=== PATIENT | female | born 1980 | race American Indian/Alaskan Native ===

== ENCOUNTER 2019-01-23 17:16 | Emergency (ER) | payer SELFPAY ==
[2019-01-23] MEDS ORDERED: NACL 0.9% 1000 ML 1,000 ML IV ONE (17:31)
[2019-01-23 17:36] VITALS: BP 144/87
--- NOTE | 2019-01-23 17:58 | Emergency Department Report ---
ED Syncope HPI - General Chief Complaint: Syncope Stated Complaint: SYNCOPY Time Seen by Provider: 01/23/19 17:28 - History of Present Illness Initial Comments: Ms. Carter is a 38-year-old female with history of anxiety and depression who presents with syncopal episode witnessed by her daughter. She was standing next to a grocery cart when her daughter witnessed her going to the ground. Brief loss of consciousness. Son is also at the bedside. Son stated that she's been under a severe amount of stress. Her other son was recently incarcerated. He will be incarcerated for the next 15 years. Mrs. Carter states she just wants to sleep. when asked about suicidal ideation, she will not answer the question. Son stated that Ms. Carter has hx of "nervous breakdown" whereas she intentionally overdosed on pills. Timing/Prior Episodes: single episode today Precipitating Factors: Positive: none Context: standing Loss of Consciousness: brief (seconds) Current Symptoms: back to normal - Related Data Allergies/Adverse Reactions: Allergies No Known Allergies Allergy (Verified 01/23/19 17:31) Home Medications: Ambulatory Orders No Known Home Medications [No Reported Home Medications] 01/23/19 ED Review of Systems ROS: Stated complaint: SYNCOPY Other details as noted in HPI Comment: All other systems reviewed and negative Constitutional: denies: fever Eyes: denies: eye discharge Respiratory: denies: cough Cardiovascular: denies: chest pain ED Past Medical Hx - Past Medical History Previous Medical History?: No - Surgical History Past Surgical History?: No - Social History Smoking Status: Never Smoker Substance Use Type: None - Medications Home Medications: Home Medications Medication Instructions Recorded Confirmed Last Taken Type No Known Home Medications [No 01/23/19 01/23/19 Unknown History Reported Home Medications] ED Physical Exam - General Limitations: No Limitations General appearance: alert, in no apparent distress, other (laying on a stretcher with her back turned away from her children) - Head Head exam: Present: atraumatic, normocephalic - Eye Eye exam: Present: normal appearance - ENT ENT exam: Present: mucous membranes moist - Neck Neck exam: Present: normal inspection, full ROM - Respiratory Respiratory exam: Present: normal lung sounds bilaterally. Absent: respiratory distress, wheezes, rales, rhonchi - Cardiovascular Cardiovascular Exam: Present: regular rate, normal rhythm. Absent: systolic murmur, diastolic murmur, rubs, gallop - GI/Abdominal GI/Abdominal exam: Present: soft, normal bowel sounds. Absent: distended, tenderness - Extremities Exam Extremities exam: Present: normal inspection - Back Exam Back exam: Present: normal inspection - Neurological Exam Neurological exam: Present: alert, oriented X3 - Psychiatric Psychiatric exam: Present: depressed, flat affect - Skin Skin exam: Present: warm, dry, intact, normal color. Absent: rash ED Course Vital Signs 01/23/19 17:32 Temperature 98 F Pulse Rate 113 H Respiratory 16 Rate Blood Pressure 144/87 O2 Sat by Pulse 100 Oximetry ED Medical Decision Making - Lab Data Result diagrams: 01/23/19 17:44 01/23/19 17:44 Laboratory Results - last 24 hr 01/23/19 01/23/19 17:33 17:44 WBC 3.5 L RBC 3.75 Hgb 11.4 Hct 33.8 MCV 90 MCH 30 MCHC 34 RDW 12.4 L Plt Count 189 Lymph % (Auto) 30.3 Benzie % (Auto) 13.8 H Eos % (Auto) 0.5 Baso % (Auto) 0.6 Lymph # 1.0 L Benzie # 0.5 Eos # 0.0 Baso # 0.0 Seg Neutrophils % 54.8 Seg Neutrophils # 1.9 POC Glucose 92 - EKG Data 01/23/19 17:58 EKG obtained 1740 Sinus tachycardia rate 120 bpm normal axis prolonged QT interval no significant ST elevation nonspecific T wave pattern - Medical Decision Making 1. vasovagal syncope without indication of arrhythmia given IVF. EKG notable for sinus tachycardia which has resolved after IVF. She has had poor appetite and insomnia 2. grief reaction, acute depression regarding her son's incarceration. She will not provide hx. She is withdrawn obviously depressed. consult obtained in ED for patient. She denies SI. Did receive outpatient treatment referrals. Dc'd home Critical care attestation.: If time is entered above; I have spent that time in minutes in the direct care of this critically ill patient, excluding procedure time. ED Disposition Clinical Impression: Acute depression, Grief, Stress, Syncope Disposition: DC-01 TO HOME OR SELFCARE Is pt being admited?: No Does the pt Need Aspirin: No Condition: Stable Instructions: Syncope (ED), Depression (ED) Referrals: [facility] [Outside] - 3-5 Days [facility] [Outside] - 3-5 Days
[2019-01-23 18:00] LABS: Basophils % (Auto) 0.6 % (0.0-1.8); Eosinophils % (Auto) 0.5 % (0.0-4.3); Hematocrit 33.8 % (30.3-42.9); Hemoglobin 11.4 gm/dl (10.1-14.3); Lymphocytes % (Auto) 30.3 % (13.4-35.0); Mean Corpuscular HGB Conc 34 % (30-34); Mean Corpuscular Volume 90 fl (79-97); Monocytes # (Auto) 0.5 K/mm3 (0.0-0.8); Monocytes % (Auto) 13.8 % (0.0-7.3); Platelet Count 189 K/mm3 (140-440); Red Blood Count 3.75 M/mm3 (3.65-5.03); Red Cell Distribution Width 12.4 % (13.2-15.2)
[2019-01-23 18:28] LABS: Alanine Aminotransferase 9 units/L (7-56); Albumin 4.1 g/dL (3.9-5); BUN/Creatinine Ratio 13; Blood Urea Nitrogen 12 mg/dL (7-17); Calcium 8.4 mg/dL (8.4-10.2); Hemolysis Index 3
[2019-01-23 19:16] LABS: Bilirubin,Urine NEG (Negative); Color,Urine Straw (Yellow)
[2019-01-23 19:17] LABS: Bacteria,Urine 1+ /HPF (Negative); Blood,Urine MOD (Negative); Mucus,Urine FEW /HPF; Protein,Urine <15 mg/dL mg/dL (Negative); Urobilinogen,Urine < 2.0 mg/dL (<2.0); WBC,Urine < 1.0 /HPF (0.0-6.0)
[2019-01-23 19:25] LABS: Amphetamine Screen,Urine PRESUMPTIVE NEGATIVE; Benzodiazepines Screen,Urine PRESUMPTIVE NEGATIVE; Cannabinoid Screen,Urine PRESUMPTIVE NEGATIVE; Cocaine Screen,Urine PRESUMPTIVE NEGATIVE; Methadone Screen,Urine PRESUMPTIVE NEGATIVE; Opiate Screen,Urine PRESUMPTIVE NEGATIVE
== END 2019-01-23 19:30 | disposition home or self-care (01) ==
LOC: ED 17:16
DX: R55 Syncope and collapse (principal); F32.9 Major depressive disorder, single episode, unspecified; F43.9 Reaction to severe stress, unspecified; F43.21 Adjustment disorder with depressed mood
CPT/HCPCS: 36415; 80053; 80307; 81001; 82962; 84703; 85025; 93005; 93010; 96360; 99285; G0480; 80320

== ENCOUNTER 2019-08-05 22:04 | Emergency (ER) | payer OTHER ==
--- NOTE | 2019-08-05 23:48 | XRay Report ---
CHEST 2 VIEWS INDICATION / CLINICAL INFORMATION: Right chest pain.. COMPARISON: None available. FINDINGS: SUPPORT DEVICES: None. HEART / MEDIASTINUM: No significant abnormality. LUNGS / PLEURA: No significant pulmonary or pleural abnormality. No pneumothorax. ADDITIONAL FINDINGS: No significant additional findings. IMPRESSION: 1. No acute findings. Signer Name: Heladio Bass MD Signed: 08/05/2019 11:44 PM Workstation Name: [id number]
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
[2019-08-06] MEDS ORDERED: fentaNYL 100 MCG/2 ML INJ IM ONE (00:58)
[2019-08-06] MEDS ORDERED: ONDANSETRON 4 MG/2 ML INJ IM ONE (00:58)
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
[2019-08-06 01:15] VITALS: BP 115/78
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
== END 2019-08-06 02:15 | disposition home or self-care (01) ==
LOC: ED 22:04
DX: S39.012A Strain of muscle, fascia and tendon of lower back, initial encounter (principal); S16.1XXA Strain of muscle, fascia and tendon at neck level, initial encounter; F10.10 Alcohol abuse, uncomplicated; Z98.51 Tubal ligation status; Z98.890 Other specified postprocedural states; Z79.899 Other long term (current) drug therapy; V49.49XA Driver injured in collision with other motor vehicles in traffic accident, initial encounter; Y93.89 Activity, other specified; Y92.410 Unspecified street and highway as the place of occurrence of the external cause; Y99.8 Other external cause status
CPT/HCPCS: 71046; 72040; 72100; 96372; 99283; J2405; J3010

== ENCOUNTER 2020-01-29 12:41 | Observation (INO) | payer OTHER ==
[2020-01-29] MEDS ORDERED: ASPIRIN 325 MG TAB PO ONE (13:04)
[2020-01-29] MEDS ORDERED: ONDANSETRON 4 MG/2 ML INJ IV ONE (13:37)
[2020-01-29] MEDS ORDERED: fentaNYL 100 MCG/2 ML INJ IV ONE (13:37)
[2020-01-29] MEDS ORDERED: NITROGLYCERIN 2% OINT 1 GM TP ONE (13:37)
--- NOTE | 2020-01-29 13:40 | XRay Report ---
CHEST 2 VIEWS INDICATION / CLINICAL INFORMATION: Chest Pain. COMPARISON: 08/05/2019 FINDINGS: SUPPORT DEVICES: None. HEART / MEDIASTINUM: No significant abnormality. LUNGS / PLEURA: No significant pulmonary or pleural abnormality. No pneumothorax. ADDITIONAL FINDINGS: No significant additional findings. IMPRESSION: 1. No acute findings. Signer Name: Yoel Vemra MD Signed: 01/29/2020 1:35 PM Workstation Name: [id number]
--- NOTE | 2020-01-29 13:49 | Emergency Department Report ---
HPI - General Chief Complaint: Chest Pain PUI?: No Time Seen by Provider: 01/29/20 13:31 - [facility] HPI: Room 7 The patient is a 39-year-old female present with a chief complaint of chest pain. Patient states her symptoms began 5 days ago with intermittent substernal chest pain described as sharp and cramping in nature. Patient states she became diaphoretic, nauseous and short of breath with her chest pain. Patient denies recent flights or long car trips. Patient gives her pain a score of 10/10. Patient states her last stress test occurred in 2012 but she's never had a cardiac catheterization ED Past Medical Hx - Past Medical History Previous Medical History?: Yes Hx GERD: Yes Hx Psychiatric Treatment: Yes (depression) - Surgical History Additional Surgical History: Tubal ligation, Right foot surgery - Family History Family history: no significant - Social History Smoking Status: Never Smoker Substance Use Type: None (Denies illicit drug use), Alcohol (Occasional) - Medications Home Medications: Home Medications Medication Instructions Recorded Confirmed Last Taken Type Cyclobenzaprine [Flexeril] 10 mg PO TID PRN #10 tablet 08/06/19 Unknown Rx HYDROcodone/APAP 5-325 [[place] 1 - 2 each PO Q6HR PRN #10 tablet 08/06/19 Unknown Rx 5/325] Ibuprofen [Motrin 800 MG tab] 800 mg PO Q8HR PRN #20 tablet 08/06/19 Unknown Rx ED Review of Systems ROS: Stated complaint: CHEST PAIN Other details as noted in HPI Constitutional: diaphoresis Eyes: denies: eye pain ENT: denies: throat pain Respiratory: shortness of breath Cardiovascular: chest pain Endocrine: no symptoms reported Gastrointestinal: nausea. denies: vomiting Neurological: denies: headache Physical Exam - Physical Exam Vital Signs: Vital Signs 01/29/20 12:42 Temperature 98 F Pulse Rate 73 Respiratory 16 Rate Blood Pressure 122/75 O2 Sat by Pulse 100 Oximetry Physical Exam: GENERAL: The patient is well-developed well-nourished female sitting on stretcher occasionally experiencing chest discomfort. [] HEENT: Normocephalic. Atraumatic. Extraocular motions are intact. Patient has moist mucous membranes. NECK: Supple. Trachea midline CHEST/LUNGS: Clear to auscultation. There is no respiratory distress noted. HEART/CARDIOVASCULAR: Regular. There is no tachycardia. There is no gallop rub or murmur. ABDOMEN: Abdomen is soft, nontender. Patient has normal bowel sounds. There is no abdominal distention. SKIN: There is no rash. There is no edema. There is no diaphoresis. NEURO: The patient is awake, alert, and oriented. The patient is cooperative. The patient has normal speech MUSCULOSKELETAL: There is no evidence of acute injury. ED Course Vital Signs 01/29/20 12:42 Temperature 98 F Pulse Rate 73 Respiratory 16 Rate Blood Pressure 122/75 O2 Sat by Pulse 100 Oximetry ED Medical Decision Making - Lab Data Result diagrams: 01/29/20 13:12 01/29/20 13:08 - EKG Data -: EKG Interpreted by Me EKG shows normal: sinus rhythm Rate: normal - EKG Data When compared to previous EKG there are: previous EKG unavailable Interpretation: nonspecific ST-T wave phi (T wave inversions inferiorly) - Radiology Data Radiology results: report reviewed (Chest x-ray), image reviewed (Chest x-ray) interpreted by me: Chest x-ray-no focal infiltrates, no pneumothorax [facility] [address] [place] [address] XRay Report Signed Patient: YESSY PALOMO MR#: [id number] 5 : 1980 Acct:[id number] Age/Sex: 39 / F ADM Date: 01/29/20 Loc: ED Attending Dr: Ordering Physician: SATISH ESTRADA MD Date of Service: 01/29/20 Procedure(s): XR chest routine 2V Accession Number(s): [id number] cc: SATISH ESTRADA MD Fluoro Time In Minutes: CHEST 2 VIEWS INDICATION / CLINICAL INFORMATION: Chest Pain. COMPARISON: 08/05/2019 FINDINGS: SUPPORT DEVICES: None. HEART / MEDIASTINUM: No significant abnormality. LUNGS / PLEURA: No significant pulmonary or pleural abnormality. No pneumothorax. ADDITIONAL FINDINGS: No significant additional findings. IMPRESSION: 1. No acute findings. Signer Name: Yoel Verma MD Signed: 01/29/2020 1:35 PM Workstation Name: [id number] Transcribed By: HERMINIO Dictated By: Yoel Verma MD Electronically Authenticated By: Yoel Verma MD Signed Date/Time: 01/29/201334 DD/ 1335 TD/TT: - Differential Diagnosis ACS, pericarditis, GERD Critical care attestation.: If time is entered above; I have spent that time in minutes in the direct care of this critically ill patient, excluding procedure time. ED Disposition Clinical Impression: Chest pain Disposition: OP ADMIT IP TO THIS HOSP Is pt being admited?: Yes Does the pt Need Aspirin: Yes Condition: Fair Instructions: Chest Pain (ED) Time of Disposition: 14:39 (Hospitalist paged (Dr. Ortiz))
[2020-01-29 14:02] LABS: Basophils % (Auto) 0.3 % (0.0-1.8); Eosinophils % (Auto) 0.7 % (0.0-4.3); Hemoglobin 12.1 gm/dl (10.1-14.3); Lymphocytes # (Auto) 1.3 K/mm3 (1.2-5.4); Lymphocytes % (Auto) 33.7 % (13.4-35.0); Mean Corpuscular HGB Conc 34 % (30-34); Mean Corpuscular Volume 89 fl (79-97); Monocytes # (Auto) 0.4 K/mm3 (0.0-0.8); Monocytes % (Auto) 11.1 % (0.0-7.3); Platelet Count 184 K/mm3 (140-440); Red Blood Count 4.05 M/mm3 (3.65-5.03); Red Cell Distribution Width 12.8 % (13.2-15.2)
[2020-01-29 14:19] LABS: BUN/Creatinine Ratio 19; Blood Urea Nitrogen 15 mg/dL (7-17); Calcium 9.5 mg/dL (8.4-10.2); Hemolysis Index 9
[2020-01-29] MEDS ORDERED: ONDANSETRON 4 MG/2 ML INJ IV PRN (14:41)
[2020-01-29] MEDS ORDERED: ACETAMINOPHEN 325 MG TAB PO PRN (14:41)
--- NOTE | 2020-01-29 14:41 | History and Physical Report ---
History of Present Illness Chief complaint: My chest hurts History of present illness: 39 YO Female with HTN, GERD, Depression presents to the ED for evaluation. Patient states that she has experienced pain in her chest over the past 5 days. Patient states that pain was initially intermittent but has become more frequent over the past 2 days. Patient states that her pain is 610/10, intermittent, substernal, sharp, crampy, nonradiating, worsened with exertion, relieved with rest, associated with diaphoresis, associated with nausea, associated with shortness of breath. Patient acknowledges decreased exercise tolerance. Patient transported to [facility] for further evaluation and care. Patient seen and evaluated in the emergency department. Lab and imaging studies reviewed. Patient acknowledges family history of coronary artery disease. Patient found to have symptoms consistent with angina at rest, as well as diastolic congestive heart failure. Patient admitted to telemetry due to increased risk for cardiac decompensation. Cardiology consulted in the emergency department. Patient denies fever, chills, productive cough, skin rash, unilateral leg swelling, calf pain, prolonged travel/immobility, individual/family history of DVT/PE/bleeding/blood clotting disorders, known ill contacts, or known exposure to COVID-19. No prior admission for review. No medication listed for reconciliation at the time of my admission. Past History Past Medical History: GERD, hypertension, other (See HPI) Past Surgical History: Other (Tubal ligation, right foot surgery) Social history: , lives with family. denies: smoking, alcohol abuse Family history: CAD, hypertension Medications and Allergies Allergies Allergy/AdvReac Type Severity Reaction Status Date / Time No Known Allergies Allergy Verified 01/23/19 17:31 Home Medications Medication Instructions Recorded Confirmed Last Taken Type Cyclobenzaprine [Flexeril] 10 mg PO TID PRN #10 tablet 08/06/19 Unknown Rx HYDROcodone/APAP 5-325 [[place] 1 - 2 each PO Q6HR PRN #10 tablet 08/06/19 Unknown Rx 5/325] Ibuprofen [Motrin 800 MG tab] 800 mg PO Q8HR PRN #20 tablet 08/06/19 Unknown Rx Review of Systems Constitutional: no weight loss, no weight gain, no fever, no chills Ears, nose, mouth and throat: no ear pain, no ear discharge, no tinnitis, no nose pain, no nasal congestion Breasts: no change in shape, no swelling, no mass Cardiovascular: chest pain, shortness of breath, decreased exercise tolerance, no rapid/irregular heart beat, no edema, no syncope Respiratory: no cough, no cough with sputum, no excessive sputum, no hemoptysis Gastrointestinal: nausea, no abdominal pain, no vomiting, no diarrhea, no constipation Genitourinary Female: no pelvic pain, no flank pain, no menorrhagia, no dysuria, no urinary frequency, no urgency Rectal: no pain, no incontinence, no bleeding Musculoskeletal: no neck stiffness, no shooting arm pain, no arm numbness/tingling Integumentary: no rash, no pruritis, no redness, no sores, no wounds Neurological: no head injury, no transient paralysis, no paralysis, no parathesias, no numbness, no tingling, no seizures Psychiatric: no anxiety, no memory loss, no change in sleep habits, no sleep disturbances, no hypersomnia, no change in appetite, no change in libido, no qureshi icidal ideation, no disorientation Endocrine: no cold intolerance, no heat intolerance, no polyphagia, no excessive thirst, no polydipsia, no nocturia, no excessive sweating, no flushing Hematologic/Lymphatic: no easy bruising, no easy bleeding, no lymphadenopathy, no lymphedema Allergic/Immunologic: no urticaria, no wheezing, no anaphylaxis, no angioedema Exam - Constitutional Vitals: Temp Pulse Resp BP Pulse Ox 98 F 68 16 122/79 100 01/29/20 12:42 01/29/20 13:57 01/29/20 12:42 01/29/20 13:57 01/29/20 12:42 General appearance: Present: mild distress - EENT Eyes: Present: PERRL ENT: hearing intact, clear oral mucosa - Neck Neck: Present: supple, normal ROM - Respiratory Respiratory effort: normal Respiratory: bilateral: CTA - Cardiovascular Heart Sounds: Present: S1 & S2. Absent: rub, click - Extremities Extremities: pulses symmetrical, No edema Peripheral Pulses: within normal limits - Abdominal General gastrointestinal: Present: soft, non-tender, non-distended, normal bowel sounds Female genitourinary: Present: normal - Integumentary Integumentary: Present: clear, warm, dry - Musculoskeletal Musculoskeletal: gait normal, strength equal bilaterally - Psychiatric Psychiatric: appropriate mood/affect, intact judgment & insight - Neurologic Neurologic: CNII-XII intact, moves all extremities HEART Score - HEART Score Troponin: Troponin T < 0.010 ng/mL (0.00-0.029) 01/29/20 13:08 Results - Labs CBC & Chem 7: 01/29/20 13:12 01/29/20 13:08 Labs: Abnormal lab results 01/29/20 01/29/20 Range/Units 13:08 13:12 WBC 4.0 L (4.5-11.0) K/mm3 RDW 12.8 L (13.2-15.2) % White % (Auto) 11.1 H (0.0-7.3) % Carbon Dioxide 21 L (22-30) mmol/L Glucose 103 H (65-100) mg/dL Assessment and Plan - Patient Problems (1) Diastolic CHF Current Visit: Yes Status: Suspected Qualifiers: Heart failure chronicity: acute Qualified Code(s): I50.31 - Acute diastolic (congestive) heart failure Plan to address problem: Admit to telemetry, cardiology consulted, echocardiogram ordered and is pending at the time of admission, BNP, d-dimer, strict I/O, monitor blood pressure every shift, daily weight, supplemental oxygen (2) Angina at rest Current Visit: Yes Status: Acute Plan to address problem: Admit to telemetry, serial cardiac enzymes, EKG, supplemental oxygen, morphine, nitro, aspirin, (3) Hypertension Current Visit: Yes Status: Acute Qualifiers: Hypertension type: essential hypertension Qualified Code(s): I10 - Essential (primary) hypertension Plan to address problem: Monitor blood pressure every shift, supportive care (4) DVT prophylaxis Current Visit: Yes Status: Acute Plan to address problem: SCD to bilateral lower extremities while in bed, patient is ambulatory.
[2020-01-29] MEDS ORDERED: ASPIRIN 81 MG TAB CHEW PO STA (14:45)
[2020-01-29] MEDS ORDERED: NITROGLYCERIN 0.4 MG TAB SUBL SL PRN (14:45)
[2020-01-29] MEDS ORDERED: IBUPROFEN 800 MG TAB PO PRN (14:46)
[2020-01-29] MEDS ORDERED: CYCLOBENZAPRINE 10 MG TAB PO PRN (14:46)
[2020-01-29 15:58] LABS: Chol/HDL Ratio 2.5 %
[2020-01-29] MEDS: HYDROcodone/ACETAMINOPHEN 5-325 MG TAB PO PRN ×2 (18:17→23:43)
--- NOTE | 2020-01-30 08:28 | Consultation ---
History of Present Illness Consult date: 01/30/20 History of present illness: Impression No evidence of acute coronary syndrome atypical chest pain > 5 days HTN Negative cardiac markers, normal NTproBNP. CXR normal ECG sinus rhythm ASMI, age undetermined, no acute changes Plan stress thallium in AM to stratify risk. Past History Past Medical History: GERD, hypertension, other (See HPI) Past Surgical History: Other (Tubal ligation, right foot surgery) Social history: , lives with family. denies: smoking, alcohol abuse Family history: CAD, hypertension Medications and Allergies Allergies Allergy/AdvReac Type Severity Reaction Status Date / Time No Known Allergies Allergy Verified 01/23/19 17:31 Home Medications Medication Instructions Recorded Confirmed Last Taken Type Sertraline [Zoloft] 50 mg PO QDAY 01/29/20 01/29/20 01/29/20 History raNITIdine HCl [Zantac] 300 mg PO PRN PRN 01/29/20 01/29/20 Unknown History Active Meds: Active Medications Acetaminophen (Tylenol) 650 mg PO Q4H PRN PRN Reason: Pain MILD(1-3)/Fever >100.5/PATTON Acetaminophen/Hydrocodone Bitart ([place] 5/325) 1 each PO Q6HR PRN PRN Reason: PAIN Last Admin: 01/29/20 23:43 Dose: 1 each Documented by: Cyclobenzaprine HCl (Flexeril) 10 mg PO TID PRN PRN Reason: Muscle Spasm Ibuprofen (Ibuprofen) 800 mg PO Q8HR PRN PRN Reason: Pain, Moderate (4-6) Nitroglycerin (Nitrostat) 0.4 mg SL Q5M PRN PRN Reason: Chest Pain Ondansetron HCl (Zofran) 4 mg IV Q8H PRN PRN Reason: Nausea And Vomiting Sodium Chloride (Sodium Chloride Flush Syringe 10 Ml) 10 ml IV BID JUAN C Last Admin: 01/29/20 21:55 Dose: 10 ml Documented by: Sodium Chloride (Sodium Chloride Flush Syringe 10 Ml) 10 ml IV PRN PRN PRN Reason: LINE FLUSH Review of Systems All systems: negative (stated in impression) Physical Examination Vital Signs Temp Pulse Resp BP Pulse Ox 98 F 73 16 122/75 100 01/29/20 12:42 01/29/20 12:42 01/29/20 12:42 01/29/20 12:42 01/29/20 12:42 General appearance: no acute distress HEENT: Positive: PERRL Neck: Positive: neck supple Cardiac: Positive: Reg Rate and Rhythm, S1/S2 Lungs: Positive: Normal Exam Neuro: Positive: Grossly Intact Abdomen: Positive: Unremarkable Extremities: Absent: edema Results 01/29/20 13:12 01/29/20 13:08 Lipids 01/29/20 Range/Units 15:13 Triglycerides 40 (2-149) mg/dL Cholesterol 180 (50-199) mg/dL HDL Cholesterol 72 H (40-59) mg/dL Cholesterol/HDL Ratio 2.50 % CBC 01/29/20 Range/Units 13:12 WBC 4.0 L (4.5-11.0) K/mm3 RBC 4.05 (3.65-5.03) M/mm3 Hgb 12.1 (10.1-14.3) gm/dl Hct 36.0 (30.3-42.9) % Plt Count 184 (140-440) K/mm3 Lymph # 1.3 (1.2-5.4) K/mm3 [place] # 0.4 (0.0-0.8) K/mm3 Eos # 0.0 (0.0-0.4) K/mm3 Baso # 0.0 (0.0-0.1) K/mm3 Comprehensive Metabolic Panel 01/29/20 Range/Units 13:08 Sodium 137 (137-145) mmol/L Potassium 5.0 (3.6-5.0) mmol/L Chloride 102.6 (98-107) mmol/L Carbon Dioxide 21 L (22-30) mmol/L BUN 15 (7-17) mg/dL Creatinine 0.8 (0.7-1.2) mg/dL Glucose 103 H (65-100) mg/dL Calcium 9.5 (8.4-10.2) mg/dL
--- NOTE | 2020-01-30 15:48 | Progress Note ---
Assessment and Plan - Patient Problems (1) Diastolic CHF Current Visit: Yes Status: Suspected Qualifiers: Heart failure chronicity: acute Qualified Code(s): I50.31 - Acute diastolic (congestive) heart failure Plan to address problem: Admit to telemetry, cardiology consulted, echocardiogram ordered and is pending interpretation at this time, strict I/O, monitor blood pressure every shift, da carla weight, supplemental oxygen (2) Angina at rest Current Visit: Yes Status: Acute Plan to address problem: Admit to telemetry, serial cardiac enzymes, EKG, supplemental oxygen, morphine, nitro, aspirin, (3) Hypertension Current Visit: Yes Status: Acute Qualifiers: Hypertension type: essential hypertension Qualified Code(s): I10 - Essential (primary) hypertension Plan to address problem: Monitor blood pressure every shift, supportive care (4) DVT prophylaxis Current Visit: Yes Status: Acute Plan to address problem: SCD to bilateral lower extremities while in bed, patient is ambulatory. History Interval history: 39 YO Female HD #2 with Diastolic CHF, Angina, HTN. Pt is pending stress test. Pt resting comfortably. Echocardiogram pending interpretation. Patient is pending stress test in a.m. for a stratification. Patient continues to report intermittent chest pain. Patient denies fever, chills, palpitations, productive cough, recent ill contacts. No pull reported nursing events overnight. Hospitalist Physical - Constitutional Vitals: Temp Pulse Resp BP Pulse Ox 97.9 F 63 18 120/78 99 01/30/20 11:52 01/30/20 11:52 01/30/20 11:52 01/30/20 11:52 01/30/20 11:52 General appearance: Present: no acute distress - EENT Eyes: Present: PERRL ENT: hearing intact - Neck Neck: Present: supple - Respiratory Respiratory: right: CTA - Cardiovascular Rhythm: regular Heart Sounds: Present: S1 & S2 Peripheral Pulses: within normal limits - Abdominal General gastrointestinal: soft, non-tender, non-distended - Integumentary Integumentary: Present: clear, warm, dry - Psychiatric Psychiatric: appropriate mood/affect, cooperative - Neurologic Neurologic: CNII-XII intact HEART Score - HEART Score Troponin: Troponin T < 0.010 ng/mL (0.00-0.029) 01/29/20 21:00 Results - Labs CBC & Chem 7: 01/29/20 13:12 01/29/20 13:08 Labs: Laboratory Last Values WBC 4.0 K/mm3 (4.5-11.0) L 01/29/20 13:12 RBC 4.05 M/mm3 (3.65-5.03) 01/29/20 13:12 Hgb 12.1 gm/dl (10.1-14.3) 01/29/20 13:12 Hct 36.0 % (30.3-42.9) 01/29/20 13:12 MCV 89 fl (79-97) 01/29/20 13:12 MCH 30 pg (28-32) 01/29/20 13:12 MCHC 34 % (30-34) 01/29/20 13:12 RDW 12.8 % (13.2-15.2) L 01/29/20 13:12 Plt Count 184 K/mm3 (140-440) 01/29/20 13:12 Lymph % (Auto) 33.7 % (13.4-35.0) 01/29/20 13:12 [place] % (Auto) 11.1 % (0.0-7.3) H 01/29/20 13:12 Eos % (Auto) 0.7 % (0.0-4.3) 01/29/20 13:12 Baso % (Auto) 0.3 % (0.0-1.8) 01/29/20 13:12 Lymph # 1.3 K/mm3 (1.2-5.4) 01/29/20 13:12 [place] # 0.4 K/mm3 (0.0-0.8) 01/29/20 13:12 Eos # 0.0 K/mm3 (0.0-0.4) 01/29/20 13:12 Baso # 0.0 K/mm3 (0.0-0.1) 01/29/20 13:12 Seg Neutrophils % 54.2 % (40.0-70.0) 01/29/20 13:12 Seg Neutrophils # 2.1 K/mm3 (1.8-7.7) 01/29/20 13:12 D-Dimer 205.17 ng/mlDDU (0-234) 01/29/20 15:13 Sodium 137 mmol/L (137-145) 01/29/20 13:08 Potassium 5.0 mmol/L (3.6-5.0) 01/29/20 13:08 Chloride 102.6 mmol/L (98-107) 01/29/20 13:08 Carbon Dioxide 21 mmol/L (22-30) L 01/29/20 13:08 Anion Gap 18 mmol/L 01/29/20 13:08 BUN 15 mg/dL (7-17) 01/29/20 13:08 Creatinine 0.8 mg/dL (0.7-1.2) 01/29/20 13:08 Estimated GFR > 60 ml/min 01/29/20 13:08 BUN/Creatinine Ratio 19 % 01/29/20 13:08 Glucose 103 mg/dL (65-100) H 01/29/20 13:08 Calcium 9.5 mg/dL (8.4-10.2) 01/29/20 13:08 Troponin T < 0.010 ng/mL (0.00-0.029) 01/29/20 21:00 NT-Pro-B Natriuret Pep 10.37 pg/mL (0-450) 01/29/20 15:13 Triglycerides 40 mg/dL (2-149) 01/29/20 15:13 Cholesterol 180 mg/dL (50-199) 01/29/20 15:13 LDL Cholesterol Direct 109 mg/dL (50-130) 01/29/20 15:13 HDL Cholesterol 72 mg/dL (40-59) H 01/29/20 15:13 Cholesterol/HDL Ratio 2.50 % 01/29/20 15:13 Clark/IV: Voiding Method Toilet IV Catheter Type [Left INT / Saline Lock Antecubital] Active Medications - Current Medications Current Medications: Generic Name Dose Route Start Last Admin Trade Name Freq PRN Reason Stop Dose Admin Acetaminophen 650 mg 01/29/20 14:41 Tylenol PO Q4H PRN Pain MILD(1-3)/Fever >100.5/PATTON Acetaminophen/Hydrocodone Bitart 1 each 01/29/20 14:46 01/29/20 23:43 [place] 5/325 PO 1 each Q6HR PRN Administration PAIN Cyclobenzaprine HCl 10 mg 01/29/20 14:46 Flexeril PO TID PRN Muscle Spasm Ibuprofen 800 mg 01/29/20 14:46 Ibuprofen PO Q8HR PRN Pain, Moderate (4-6) Nitroglycerin 0.4 mg 01/29/20 14:45 Nitrostat SL Q5M PRN Chest Pain Ondansetron HCl 4 mg 01/29/20 14:41 Zofran IV Q8H PRN Nausea And Vomiting Sodium Chloride 10 ml 01/29/20 22:00 01/30/20 12:06 Sodium Chloride Flush Syringe 10 Ml IV 10 ml BID JUAN C Administration Sodium Chloride 10 ml 01/29/20 14:41 Sodium Chloride Flush Syringe 10 Ml IV PRN PRN LINE FLUSH
[2020-01-30] MEDS: HYDROcodone/ACETAMINOPHEN 5-325 MG TAB PO PRN (22:59)
[2020-01-31] MEDS ORDERED: REGADENOSON 0.4 MG/5 ML INJ IV ONE ×2 (08:23→08:27)
[2020-01-31 11:55] VITALS: BP 131/86
--- NOTE | 2020-01-31 14:12 | Treadmill Report ---
THALLIUM STRESS TEST LEFT VENTRICLE: Left ventricular chamber size is within normal spread. Perfusion study demonstrates homogeneous uptake of the tracer in all segments, no significant defects identified. Gated analysis demonstrates normal left ventricular systolic function, ejection fraction 71%. CONCLUSION: Normal myocardial perfusion study. JOB# [id number] CA/NTS
--- NOTE | 2020-01-31 16:16 | Discharge Summary ---
Providers - Providers Date of Admission: 01/29/20 14:41 Attending physician: HENRY ROMERO 01/29/20 Consult to Cardiac Rehabilitation [CONS] Routine Reason For Exam: Phase I 01/29/20 14:45 Consult to Cardiology [CONS] Routine Consulting Provider: SAHARA MORAN Reason For Exam: angina/chf Primary care physician: [employer] Hospitalization Condition: Fair Procedures: Stress test: No evidence of ischemia Echocardiogram: Ejection fraction 55 %: Normal diastolic function Hospital course: 39 YO Female with HTN, GERD, Depression presented to the ED for evaluation. Patient stated that she had experienced pain in her chest over the past 5 days prior to presentation. Patient stated that pain was initially intermittent but had become more frequent over the past 2 days prior to presentation. Patient stated that her pain was 610/10, intermittent, substernal, sharp, crampy, nonradiating, worsened with exertion, relieved with rest, associated with diaphoresis, associated with nausea, associated with shortness of breath. Patient acknowledged decreased exercise tolerance. Patient transported to [facility] for further evaluation and care. Patient seen and evaluated in the emergency department. Lab and imaging studies reviewed by me. Patient acknowledged family history of coronary artery disease. Patient found to have symptoms consistent with angina at rest, as well as diastolic congestive heart failure. Patient admitted to telemetry due to increased risk for cardiac decompensation. Cardiology consulted in the emergency department. Patient initiated on chest pain protocol. Serial cardiac enzymes, EKG and telemetry monitoring were unremarkable. Patient underwent stress test which was negative for ischemia. Patient underwent echocardiogram which showed a normal ejection fraction of 55% as well as normal diastolic function. Acute myocardial infarction was ruled out. Patient symptoms suspected secondary to gastroesophageal reflux disease. Patient treated with PPI therapy. Patient medically optimized and back to usual state of health on day of discharge and was subsequently discharged home. Patient seen and evaluated prior to discharge but no significant new physical exam findings were elicited. Patient discharged home and instructed to follow- up with primary care physician within 1 week, and to follow-up with cardiology as instructed. Patient instructed to undergo age-appropriate screening test and follow-up with GI as per primary care physician recommendations. 35 minutes dedicated to patient discharge and coordination of care. Disposition: TO HOME OR SELFCARE - Discharge Diagnoses (1) Diastolic CHF Status: Suspected Qualifiers: Heart failure chronicity: acute Qualified Code(s): I50.31 - Acute diastolic (congestive) heart failure (2) Angina at rest Status: Acute (3) Hypertension Status: Acute Qualifiers: Hypertension type: essential hypertension Qualified Code(s): I10 - Essential (primary) hypertension (4) DVT prophylaxis Status: Acute Core Measure Documentation - Palliative Care Palliative Care/ Comfort Measures: Not Applicable - Core Measures Any of the following diagnoses?: none Exam - Constitutional Vitals: Temp Pulse Resp BP Pulse Ox 98.4 F 68 20 131/86 97 01/31/20 11:00 01/31/20 12:00 01/31/20 11:00 01/31/20 11:00 01/31/20 16:00 General appearance: Present: no acute distress, well-nourished - EENT Eyes: Present: PERRL ENT: hearing intact, clear oral mucosa - Neck Neck: Present: supple, normal ROM - Respiratory Respiratory effort: normal Respiratory: bilateral: CTA - Cardiovascular Heart Sounds: Present: S1 & S2. Absent: rub, click - Extremities Extremities: pulses symmetrical, No edema Peripheral Pulses: within normal limits - Abdominal General gastrointestinal: Present: soft, non-tender, non-distended, normal bowel sounds Female genitourinary: Present: normal - Integumentary Integumentary: Present: clear, warm, dry - Musculoskeletal Musculoskeletal: gait normal, strength equal bilaterally - Psychiatric Psychiatric: appropriate mood/affect, intact judgment & insight - Neurologic Neurologic: CNII-XII intact, moves all extremities Plan Activity: advance as tolerated Diet: low fat, low cholesterol Follow up with: PRIMARY CARE, [Primary Care Provider] - 3-5 Days Prescriptions: Pantoprazole [Protonix] 40 mg PO QDAY #30 tablet
--- NOTE | 2020-01-31 17:31 | Event Note ---
Date: 01/31/20 The patient underwent an exercise thallium stress test today, during which he exercised for 10 minutes of a Clement protocol. There was no chest pain, no ST changes of ischemia, thallium images were normal. No further cardiac work-up is indicated, patient is stable for cardiac discharge.
== END 2020-01-31 18:05 | disposition home or self-care (01) ==
LOC: ED 12:41 → 4A 14:41
PROVIDERS: ADMIT Internal Medicine; ATTEND Internal Medicine
DX: I11.0 Hypertensive heart disease with heart failure (principal); I50.31 Acute diastolic (congestive) heart failure; I20.9 Angina pectoris, unspecified; K21.9 Gastro-esophageal reflux disease without esophagitis; F32.9 Major depressive disorder, single episode, unspecified; Z79.899 Other long term (current) drug therapy
CPT/HCPCS: 36415; 71046; 78452; 80048; 80061; 83880; 84484; 85025; 85379; 93005; 93017; 93306; 96374; 96375; 99285; A9502; G0378; J2405; J3010; J2785

== ENCOUNTER 2020-10-10 22:41 | Emergency (ER) | payer SELFPAY ==
[2020-10-10] MEDS ORDERED: SODIUM CHLORIDE 0.9% 1000 ML 1,000 ML IV ONE (22:58)
[2020-10-10] MEDS ORDERED: FAMOTIDINE 20 MG/2 ML INJ IV ONE (22:58)
[2020-10-10] MEDS ORDERED: ONDANSETRON 4 MG/2 ML INJ IV ONE (22:58)
[2020-10-10] MEDS ORDERED: DICYCLOMINE 20 MG/2 ML INJ IM ONE (22:59)
[2020-10-10 23:41] LABS: Basophils % (Auto) 0.1 % (0.0-1.8); Eosinophils % (Auto) 0.2 % (0.0-4.3); Hematocrit 33.5 % (30.3-42.9); Hemoglobin 11.4 gm/dl (10.1-14.3); Lymphocytes # (Auto) 0.9 K/mm3 (1.2-5.4); Lymphocytes % (Auto) 11.3 % (13.4-35.0); Mean Corpuscular HGB Conc 34 % (30-34); Mean Corpuscular Volume 88 fl (79-97); Monocytes # (Auto) 0.5 K/mm3 (0.0-0.8); Monocytes % (Auto) 6.6 % (0.0-7.3); Platelet Count 205 K/mm3 (140-440); Red Blood Count 3.82 M/mm3 (3.65-5.03); Red Cell Distribution Width 12.7 % (13.2-15.2)
[2020-10-10 23:51] LABS: Alanine Aminotransferase 10 units/L (7-56); Albumin 4.6 g/dL (3.9-5); BUN/Creatinine Ratio 18; Blood Urea Nitrogen 14 mg/dL (7-17); Hemolysis Index 2
--- NOTE | 2020-10-10 23:57 | Event Note ---
ED Screening Note Date of service: 10/10/20 Time: 23:00 ED Screening Note: Patient is a 41-year-old -[place] female with no past medical history presents to the ED with complaint of acute onset persistent intractable nausea and vomiting, diarrhea and epigastric pain for the last 6 hours. Patient states that she is unsure as to the etiology of her symptoms and states that no one else at home or at work has had the similar symptoms. Patient states that since the onset, she has had multiple nausea and vomiting episodes as well as persistent diarrhea. Patient states that the pain in the epigastric area is worse with nausea and vomiting. Patient denies hematemesis, hematochezia, dysuria, urinary frequency and urgency, chest pain, shortness of breath, sore throat, headache, dizziness, syncope, fever, chills, change in vision or vaginal bleeding, sore throat or cough. This initial assessment/diagnostic orders/clinical plan/treatment(s) is/are subject to change based on patients health status, clinical progression and re- assessment by fellow clinical providers in the ED. Further treatment and workup at subsequent clinical providers discretion. Patient/guardian urged not to elope from the ED as their condition may be serious if not clinically assessed and managed. Initial orders include: CBC, CMP, lipase, UA, qualitative serum hCG, normal saline 1 L IV bolus x1, Zofran 4 mg IV x1, Pepcid 20 mg IV x1 and Bentyl 20 mg IM x1.
[2020-10-11] MEDS ORDERED: ONDANSETRON 4 MG/2 ML INJ ONE (01:30)
[2020-10-11] MEDS ORDERED: DICYCLOMINE 20 MG/2 ML INJ IM ONE (01:30)
[2020-10-11] MEDS ORDERED: FAMOTIDINE 20 MG/2 ML INJ IV ONE (01:31)
[2020-10-11] MEDS ORDERED: HYDROmorphone 1 MG/1 ML INJ IV ONE (01:47)
--- NOTE | 2020-10-11 01:48 | Emergency Department Report ---
ED General Adult HPI - General Chief complaint: Nausea/Vomiting/Diarrhea Stated complaint: VOMITING/DIARRHEA/COLD SWEATS PUI?: No Time Seen by Provider: 10/11/20 01:27 Source: patient, RN notes reviewed, old records reviewed Mode of arrival: Ambulatory Limitations: No Limitations - History of Present Illness Initial comments: The patient was evaluated in the emergency department for symptoms described in the history of present illness. He/she was evaluated in the context of the global COVID-19 pandemic, which necessitated consideration that the patient might be at risk for infection with the virus that causes COVID-19. I nstitutional protocols and algorithms that pertain to the evaluation of patients at risk for COVID-19 are in a state of rapid change based on information released by regulatory bodies including the CDC and federal and state organizations. These policies and algorithms were followed during the patient's care in the emergency department. Please note that these policies, procedures and recommendations changed on a rapid basis. During the history and physical examination, chaperoned by nurse Aurora Daigle Past medical history: COVID-19, August 2020 Question GERD/gastritis. Patient is a 40-year-old female who typically follows to [facility] primary care. She presents to the ER today with a complaint of 8 hours epigastric pain, bilateral lower quadrant abdominal pain, suprapubic and right lower quadrant most prominently. She has vomited multiple times, nonbloody and nonbilious, and describes 4-6 episodes of watery diarrhea. No fever, no dysuria, chronic vaginal discharge which is not a new, worsened or different. No headache, neck pain, chest pain, shortness of breath. No loss of taste or smell. No muscle aches. She has not had pain like this before. She occasionally smokes marijuana. She is not had issues with nausea, vomiting, diarrhea and abdominal pain like this in the past. -: Gradual, hour(s) Location: abdomen Radiation: abdomen Quality: aching Consistency: intermittent Improves with: movement, rest - Related Data Home Medications Medication Instructions Recorded Confirmed Last Taken Sertraline [Zoloft] 50 mg PO QDAY 01/29/20 01/29/20 01/29/20 raNITIdine HCl [Zantac] 300 mg PO PRN PRN 01/29/20 01/29/20 Unknown Previous Rx's Medication Instructions Recorded Last Taken Type Pantoprazole [Protonix] 40 mg PO QDAY #30 tablet 01/31/20 Unknown Rx Acetaminophen [Non-Aspirin Extra 500 mg PO Q6HR PRN #30 tablet 10/11/20 Unknown Rx Strength] Miky Root [Miky] 250 mg PO QID PRN #30 capsule 10/11/20 Unknown Rx Metoclopramide [Reglan] 10 mg PO QID PRN #30 tablet 10/11/20 Unknown Rx Promethazine HCl [Phenergan SUPPOS] 25 mg RC Q6HR PRN #20 supp.rect 10/11/20 Unknown Rx Allergies Allergy/AdvReac Type Severity Reaction Status Date / Time No Known Allergies Allergy Verified 01/23/19 17:31 ED Review of Systems ROS: Stated complaint: VOMITING/DIARRHEA/COLD SWEATS Other details as noted in HPI Constitutional: malaise, weakness. denies: fever Eyes: denies: eye discharge ENT: denies: congestion Respiratory: denies: cough, shortness of breath Cardiovascular: denies: chest pain Gastrointestinal: abdominal pain, nausea, vomiting, diarrhea. denies: hematemesis, melena, hematochezia Genitourinary: discharge (Chronic discharge). denies: dysuria Musculoskeletal: denies: back pain Skin: denies: lesions Neurological: weakness Hematological/Lymphatic: denies: easy bleeding ED Past Medical Hx - Past Medical History Previous Medical History?: Yes Hx GERD: Yes Hx Psychiatric Treatment: Yes (depression anxeity) - Surgical History Past Surgical History?: Yes Additional Surgical History: Tubal ligation, Right foot surgery - Social History Smoking Status: Never Smoker Substance Use Type: Alcohol - Medications Home Medications: Home Medications Medication Instructions Recorded Confirmed Last Taken Type Sertraline [Zoloft] 50 mg PO QDAY 01/29/20 01/29/20 01/29/20 History raNITIdine HCl [Zantac] 300 mg PO PRN PRN 01/29/20 01/29/20 Unknown History Pantoprazole [Protonix] 40 mg PO QDAY #30 tablet 01/31/20 Unknown Rx Acetaminophen [Non-Aspirin Extra 500 mg PO Q6HR PRN #30 tablet 10/11/20 Unknown Rx Strength] Miky Root [Miky] 250 mg PO QID PRN #30 capsule 10/11/20 Unknown Rx Metoclopramide [Reglan] 10 mg PO QID PRN #30 tablet 10/11/20 Unknown Rx Promethazine HCl [Phenergan SUPPOS] 25 mg RC Q6HR PRN #20 supp.rect 10/11/20 Unknown Rx ED Physical Exam - General Limitations: No Limitations General appearance: alert, in no apparent distress - Head Head exam: Present: atraumatic, normocephalic - Eye Eye exam: Present: normal appearance, EOMI. Absent: nystagmus - ENT ENT exam: Present: normal exam, normal orophraynx, mucous membranes moist, normal external ear exam - Neck Neck exam: Present: normal inspection, full ROM. Absent: tenderness, meningismus - Respiratory Respiratory exam: Present: normal lung sounds bilaterally. Absent: respiratory distress, wheezes, rales, rhonchi, stridor, decreased breath sounds - Cardiovascular Cardiovascular Exam: Present: regular rate, normal rhythm, normal heart sounds. Absent: bradycardia, tachycardia, irregular rhythm, systolic murmur, diastolic murmur, rubs, gallop - GI/Abdominal GI/Abdominal exam: Present: soft, tenderness, other (Epigastric tenderness, suprapubic and right lower quadrant tenderness.). Absent: distended, guarding, rebound, rigid, pulsatile mass - Extremities Exam Extremities exam: Present: normal inspection, full ROM, other (2+ pulses noted in the bilateral upper and lower extremities. There is no palpable cord. negative Homans sign. Muscular compartments are soft. The pelvis is stable.). Absent: pedal edema, calf tenderness - Back Exam Back exam: Present: normal inspection, full ROM. Absent: tenderness, CVA tenderness (R), CVA tenderness (L), paraspinal tenderness, vertebral tenderness - Neurological Exam Neurological exam: Present: alert, normal gait, other (No facial droop. Tongue midline. Extraocular movements intact bilaterally. Facial sensation intact to light touch in V1, V2, V3 distribution bilaterally. 5 and a 5 strength in 4 extremities. Sensation intact to light touch in 4 extremities.). Absent: motor sensory deficit - Psychiatric Psychiatric exam: Present: normal affect, normal mood - Skin Skin exam: Present: warm, dry, intact, normal color. Absent: rash ED Course Vital Signs 10/10/20 10/11/20 10/11/20 22:55 01:53 03:00 Temperature 98.5 F 97.9 F Pulse Rate 89 77 78 Respiratory 18 18 16 Rate Blood Pressure 137/84 Blood Pressure 133/82 120/78 [Left] O2 Sat by Pulse 96 100 100 Oximetry - Reevaluation(s) Reevaluation #1: 10/11/20 02:05 Differential diagnosis, including but not limited to: Pancreatitis, colitis, diverticulitis, appendicitis, renal colic, perforated viscus, pyelonephritis, pelvic inflammatory disease, colitis, enteritis Assessment and plan: 40-year-old female with epigastric pain, suprapubic and right lower quadrant pain, nausea, vomiting, diarrhea The patient is afebrile with reassuring vital signs. However, she is in moderate distress and is appears to be very uncomfortable. She is quite tender in her suprapubic and right lower quadrant regions. After my initial history and physical, she stood up, and began actively vomiting. We will treat her symptoms aggressively, perform pelvic examination, obtain EKG, obtain CT scan of the abdomen pelvis, and reassess. Have discussed this plan of care with the patient, who is amenable to the aforementioned plan of care. 10/11/20 03:23 Reassessed. Vomiting has resolved. Pain is improved. Abdomen soft on repeat exam. Patient drinking water, and playing on her cellular phone. CT scan of the abdomen pelvis shows no acute surgical pathology, gastroenteritis is suggested. Urinalysis unremarkable. Have discussed these findings with the patient. Patient declines pelvic examination, which I think is reasonable, this is most likely GI in pathology, not gynecologic. Patient suitable for trial of outpatient management. Return precautions are reviewed. She is amenable to this plan of care. ED Medical Decision Making - Lab Data Result diagrams: 10/10/20 23:20 10/10/20 23:20 Vital Signs 10/10/20 10/11/20 22:55 01:53 Temperature 98.5 F 97.9 F Pulse Rate 89 77 Respiratory 18 18 Rate Blood Pressure 137/84 Blood Pressure 133/82 [Left] O2 Sat by Pulse 96 100 Oximetry Lab Results 10/10/20 10/10/20 10/10/20 Range/Units 23:20 23:20 23:20 WBC 8.0 (4.5-11.0) K/mm3 RBC 3.82 (3.65-5.03) M/mm3 Hgb 11.4 (10.1-14.3) gm/dl Hct 33.5 (30.3-42.9) % MCV 88 (79-97) fl MCH 30 (28-32) pg MCHC 34 (30-34) % RDW 12.7 L (13.2-15.2) % Plt Count 205 (140-440) K/mm3 Lymph % (Auto) 11.3 L (13.4-35.0) % [place] % (Auto) 6.6 (0.0-7.3) % Eos % (Auto) 0.2 (0.0-4.3) % Baso % (Auto) 0.1 (0.0-1.8) % Lymph # (Auto) 0.9 L (1.2-5.4) K/mm3 [place] # (Auto) 0.5 (0.0-0.8) K/mm3 Eos # (Auto) 0.0 (0.0-0.4) K/mm3 Baso # (Auto) 0.0 (0.0-0.1) K/mm3 Seg Neutrophils % 81.8 H (40.0-70.0) % Seg Neutrophils # 6.5 (1.8-7.7) K/mm3 Sodium 137 (137-145) mmol/L Potassium 4.0 (3.6-5.0) mmol/L Chloride 104.1 (98-107) mmol/L Carbon Dioxide 23 (22-30) mmol/L Anion Gap 14 mmol/L BUN 14 (7-17) mg/dL Creatinine 0.8 (0.6-1.2) mg/dL Estimated GFR > 60 ml/min BUN/Creatinine Ratio 18 % Glucose 122 H (65-100) mg/dL Calcium 9.0 (8.4-10.2) mg/dL Total Bilirubin 0.40 (0.1-1.2) mg/dL AST 20 (5-40) units/L ALT 10 (7-56) units/L Alkaline Phosphatase 52 (35-129) units/L Total Protein 7.5 (6.3-8.2) g/dL Albumin 4.6 (3.9-5) g/dL Albumin/Globulin Ratio 1.6 % Lipase 62 H (13-60) units/L HCG, Qual Negative (Negative) - EKG Data -: EKG Interpreted by Nh EKG shows normal: sinus rhythm Rate: normal - EKG Data When compared to previous EKG there are: previous EKG unavailable 10/11/20 03:09 Sinus rhythm, 70 bpm. Normal axis, QTC 444 ms, poor R wave progression. Abnormal EKG. Not a STEMI. - Radiology Data Radiology results: pending, report reviewed, image reviewed CT ABDOMEN AND PELVIS WITH CONTRAST INDICATION / CLINICAL INFORMATION: Right lower quadrant, suprapubic abdominal pain. TECHNIQUE: Axial CT images were obtained through the abdomen and pelvis after 100 mL Omnipaque [address] scans at this location are performed using CT dose reduction for ALARA by means of automated exposure control. COMPARISON: None available. FINDINGS: LOWER CHEST: No significant abnormality. LIVER: No significant abnormality. GALLBLADDER: No significant abnormality. BILE DUCTS: No significant abnormality. PANCREAS: No significant abnormality. SPLEEN: No significant abnormality. ADR ENALS: No significant abnormality. RIGHT KIDNEY / URETER: No significant abnormality. LEFT KIDNEY / URETER: No significant abnormality. STOMACH / SMALL BOWEL: Fluid-filled small bowel without significant dilatation. No obstruction. COLON: No significant abnormality. APPENDIX: Not visualized. PERITONEUM: Trace free fluid in the pelvis. No free air. No fluid collection. LYMPH NODES: No significant adenopathy. AORTA / ARTERIES: No significant abnormality. IVC / VEINS: No significant abnormality. URINARY BLADDER: Collapsed. REPRODUCTIVE ORGANS: No significant abnormality. ADDITIONAL FINDINGS: None. SKELETAL SYSTEM: No significant abnormality. IMPRESSION: 1. Fluid-filled, nondilated small bowel can be seen in the clinical setting of enteritis. No bowel obstruction. Signer Name: Nona Arredondo MD Signed: 10/11/2020 1:32 AM Workstation Name: [id number] Critical care attestation.: If time is entered above; I have spent that time in minutes in the direct care o f this critically ill patient, excluding procedure time. ED Disposition Clinical Impression: Acute abdominal pain, Nausea vomiting and diarrhea Disposition: - TO HOME OR SELFCARE Is pt being admited?: No Does the pt Need Aspirin: No Condition: Good Instructions: Nausea and Vomiting, Adult, [id number] Additional Instructions: Do not take Metformin medication for the next 2 days, if patient takes this medication. Advance diet as tolerated. Drink plenty of fluids. Avoid consumption of Motrin, ibuprofen, Naprosyn, Aleve, heavy and spicy foods. Water and/or Pedialyte are typically ideal rehydration formulations. Cultures were sent today, and results will be available in the next 3 to 5 days. Please have your primary care doctor contact the medical records department to obtain culture results. Start with gentle foods, such as bread, rice, apples, toast. Wash hands thoroughly, frequently, and often. Patient may take the miky tablets, regular medication as needed for nausea and vomiting. Patient may take the acetaminophen, or ranitidine or pantoprazole as needed for heartburn and upper abdominal pain. Use the Phenergan suppositories for nausea and vomiting that are not relieved with miky tablets, and Reglan. Follow-up with a primary care doctor within the next 3 to 5 days for repeat checkup and evaluation. Please return to the emergency room right away with new pain, worsening pain, migration of pain, projectile vomiting, change in mental status, confusion, inability to tolerate liquid feeds, new, worsened or different symptoms not present on the initial emergency room evaluation. Prescriptions: Miky Root [Miky] 250 mg PO QID PRN #30 capsule PRN Reason: Nausea Acetaminophen [Non-Aspirin Extra Strength] 500 mg PO Q6HR PRN #30 tablet PRN Reason: Pain , Severe (7-10) Promethazine HCl [Phenergan SUPPOS] 25 mg RC Q6HR PRN #20 supp.rect PRN Reason: Nausea Metoclopramide [Reglan] 10 mg PO QID PRN #30 tablet PRN Reason: Nausea Referrals: [facility] [Provider Group] - 3-5 Days Forms: Work/School Release Form(ED)
--- NOTE | 2020-10-11 02:36 | Cat Scan Report ---
CT ABDOMEN AND PELVIS WITH CONTRAST INDICATION / CLINICAL INFORMATION: Right lower quadrant, suprapubic abdominal pain. TECHNIQUE: Axial CT images were obtained through the abdomen and pelvis after 100 mL Omnipaque [address] scans at this location are performed using CT dose reduction for ALARA by means of automated exposure control. COMPARISON: None available. FINDINGS: LOWER CHEST: No significant abnormality. LIVER: No significant abnormality. GALLBLADDER: No significant abnormality. BILE DUCTS: No significant abnormality. PANCREAS: No significant abnormality. SPLEEN: No significant abnormality. ADRENALS: No significant abnormality. RIGHT KIDNEY / URETER: No significant abnormality. LEFT KIDNEY / URETER: No significant abnormality. STOMACH / SMALL BOWEL: Fluid-filled small bowel without significant dilatation. No obstruction. COLON: No significant abnormality. APPENDIX: Not visualized. PERITONEUM: Trace free fluid in the pelvis. No free air. No fluid collection. LYMPH NODES: No significant adenopathy. AORTA / ARTERIES: No significant abnormality. IVC / VEINS: No significant abnormality. URINARY BLADDER: Collapsed. REPRODUCTIVE ORGANS: No significant abnormality. ADDITIONAL FINDINGS: None. SKELETAL SYSTEM: No significant abnormality. IMPRESSION: 1. Fluid-filled, nondilated small bowel can be seen in the clinical setting of enteritis. No bowel ob struction. Signer Name: Nona Arredondo MD Signed: 10/11/2020 2:32 AM Workstation Name: [id number]
[2020-10-11 03:11] VITALS: BP 120/78
[2020-10-11 03:17] LABS: Bilirubin,Urine NEG (Negative); Blood,Urine NEG (Negative); Color,Urine Straw (Yellow); Protein,Urine <15 mg/dL mg/dL (Negative); Urobilinogen,Urine < 2.0 mg/dL (<2.0); WBC,Urine < 1.0 /HPF (0.0-6.0)
== END 2020-10-11 03:35 | disposition home or self-care (01) ==
LOC: ED 22:41
DX: R11.2 Nausea with vomiting, unspecified (principal); R19.7 Diarrhea, unspecified; R10.9 Unspecified abdominal pain; K21.9 Gastro-esophageal reflux disease without esophagitis; F32.9 Major depressive disorder, single episode, unspecified; Z79.899 Other long term (current) drug therapy; Z98.890 Other specified postprocedural states; Z98.51 Tubal ligation status
CPT/HCPCS: 36415; 74177; 80053; 81001; 83690; 84703; 85025; 93005; 96361; 96374; 96375; 99284; J1170; J2405; J7030; Q9967; J0500